=== PATIENT | male | born 1975 | race Caucasian/White ===

== ENCOUNTER 2023-05-30 20:34 | Emergency (ER) | payer SELFPAY ==
[2023-05-30 20:34] VITALS: BMI 21.0
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
[2023-05-30 20:48] VITALS: BP 122/73
[2023-05-31 00:55] LABS: Amphetamines Negative (Negative); Barbiturates Negative (Negative); Benzodiazepines Negative (Negative); Buprenorphine Negative (Negative); Cocaine Negative (Negative); Marijuana Positive (Negative); Methadone Negative (Negative); Methamphetamines Negative (Negative); Opiates Negative (Negative); Phencyclidine Negative (Negative); Tricyclic Antidepressants Negative (Negative)
--- NOTE | 2023-05-31 06:57 | EDRN ---
the pt is refusing to allow staff to obtain blood work from him, the pt is stating, 'I cannot get blood drawn i am a Jehovas witness it is against my holiness beliefs', provider made aware
--- NOTE | 2023-05-31 09:00 | EDRN ---
material worker states pt is to see Dr. Hernandez, psychiatrist today and if not released is scheduled for 303 hearing tomorrow.
--- NOTE | 2023-05-31 09:54 | W.PN.UPDATE ---
Update Note
Progress Note Update
Psychiatric Evaluation dictated.
Patient is denying the events reported in the 302 petition. He however is still paranoid, feels he is being poisoned and his father's property is being withheld from him by a law firm.
Toxicology is positive for marijuana.
Tried to get further information but unable to do so at this time.
Will uphold petition and initiate 303 for acute psychosis.
[2023-05-31 10:02] VITALS: BP 117/72
--- NOTE | 2023-05-31 14:45 | EDRN ---
Diet tray ordered at this time.
--- NOTE | 2023-05-31 15:40 | EDRN ---
Pt eating ordered diet tray at this time.
--- NOTE | 2023-05-31 18:15 | EDRN ---
Pt did order supper
[2023-06-01 05:27] VITALS: BP 105/69
--- NOTE | 2023-06-01 09:23 | ED.CRISIS ---
ED Crisis Note
ED Crisis Note
Subjective:
302
Assessment/Plan:
Patient expresses a flight of ideas and is telling me he needs to hire a team leader/research psychologist. He keeps discussing money and going to the bank. He is pacing around but consolable. Patient awaiting 303 hearing at 10 AM this morning.
--- NOTE | 2023-06-01 11:13 | W.PN.UPDATE ---
Update Note
Progress Note Update
Patient did have the 303 hearing, he completely denied as to what was alleged in the 302 petition. He claimed the bankteller refused to honor the check and he claims he just told the [place] he will roddy. I was/am concerned that the patient is not
telling the truth particularly since he has delusions. Court however did let him go.
== END 2023-06-01 11:13 ==
LOC: EMR 20:34
PROVIDERS: EMERGENCY PHYSICIAN Emergency Medicine; OTHER PHYSICIAN Psychiatry & Neurology Psychiatry
DX: F29 Unspecified psychosis not due to a substance or known physiological condition (principal); F12.10 Cannabis abuse, uncomplicated
CPT/HCPCS: 99285; 80306

== ENCOUNTER 2024-04-17 12:08 | Emergency (ER) | payer SELFPAY ==
[2024-04-17 12:10] VITALS: BP 139/84
[2024-04-17 12:15] VITALS: BMI 20.3
--- NOTE | 2024-04-17 12:38 | ED.GENMED ---
History of Present Illness
<Jacqui Madison PA-C - Last Filed: 04/17/24 16:40>
General
Chief Complaint: Crisis Evaluation
Source: patient and police (reviewed 302 written by police)
Exam Limitations: other (Psychosis)
Time Seen by Provider: 04/17/24 12:24
Nursing documentation reviewed up to this point in time: agreed with
History of Present Illness
History of Present Illness:
Patient is a 48-year-old male presenting to the emergency department via police under 302. Patient states that he was walking along the road from [place] to his house when the police picked him up. When asked�patient is unsure why police picked him
up. Although he does state that 'police picked me up so that I will be unable to attend the court hearing on Sunday. They are trying to stop me from taking over my dad's will and preventing me from keeping his money and home '. Patient repeatedly
mumbling incoherently language to himself.
Patient denies any history of psychiatric conditions, suicidal ideations, or homicidal ideations. Patient denies hearing any voices. Patient denies any alcohol or drug abuse.
302 was petitioned by police. Per the 302�please had numerous interactions with patient over the past year. Today he was seen walking in traffic and attempting to run in front of cars. He was screaming at cars. Patient has not been taking his
medications.
Past History
<Jacqui Madison PA-C - Last Filed: 04/17/24 16:40>
Past History
ED Past Medical History: None
ED Past Surgical History: None
Social History
Tobacco: Non-smoker
Alcohol: Occasional
Personal:
Living: with family
Employment: Employed
Family History
Family History: Negative Diabetes
Review of Systems
<Jacqui Madison PA-C - Last Filed: 04/17/24 16:40>
Review of Systems
Allergies reviewed?: Yes
All Other Systems: ROS reviewed and negative except as documented in HPI and ROS
Phy Exam
<Jacqui Madison PA-C - Last Filed: 04/17/24 16:40>
Physical Exam
Physical Exam:
Vitals: Patient's vital signs are stable
General: Patient is sitting in bed comfortably.
Skin: Warm and dry, no rashes or lesions
Head: Normocephalic, atraumatic
Eyes: Sclera nonicteric.
Throat: Protecting airway
Neck: Normal ROM,
Cardiac: Regular rate and rhythm, no murmurs.
Pulm: Normal respiratory effort, no wheezes, rales, rhonchi heard on exam.
Abdomen: No abdominal tenderness.
Extremities: No evidence of cyanosis or edema
Neuro: AAOx3. Grossly intact. Moves
Psychiatric: Appears delusional. Disorganized thinking.
Course
<Jacqui Madison PA-C - Last Filed: 04/17/24 16:40>
Orders/Labs/Results
Orders:
Orders
04/17/24 12:36
Crisis Consult Urgent
Reason for Consult: 302, psychosis
Alcohol Urgent
Complete Blood Count/With Diff Urgent
Comprehensive Metabolic Panel Urgent
Urine Drug Abuse Screen Urgent
04/17/24 13:42
Lorazepam [Ativan] 1 mg PO Q4HPRN PRN
04/17/24 13:51
Haloperidol Lactate [Haldol] 2 mg IM [id number] PRN
Vital Signs
Initial and Last Documented VS:
Initial Vital Signs
Temp Pulse Resp BP Pulse Ox
98.5 F 80 18 139/84 98
04/17/24 12:10 04/17/24 12:10 04/17/24 12:10 04/17/24 12:10 04/17/24 12:10
Last Documented Vital Signs
Temp Pulse Resp BP Pulse Ox
98.5 F 80 18 139/84 98
04/17/24 12:10 04/17/24 12:10 04/17/24 12:10 04/17/24 12:10 04/17/24 12:10
<Hosea Smith DO - Last Filed: 04/17/24 13:32>
Orders/Labs/Results
Orders:
Orders
04/17/24 12:36
Crisis Consult Urgent
Reason for Consult: 302, psychosis
Alcohol Urgent
Complete Blood Count/With Diff Urgent
Comprehensive Metabolic Panel Urgent
Urine Drug Abuse Screen Urgent
04/17/24 13:42
Lorazepam [Ativan] 1 mg PO Q4HPRN PRN
04/17/24 13:51
Haloperidol Lactate [Haldol] 2 mg IM [id number] PRN
Vital Signs
Initial and Last Documented VS:
Initial Vital Signs
Temp Pulse Resp BP Pulse Ox
98.5 F 80 18 139/84 98
04/17/24 12:10 04/17/24 12:10 04/17/24 12:10 04/17/24 12:10 04/17/24 12:10
Last Documented Vital Signs
Temp Pulse Resp BP Pulse Ox
98.5 F 80 18 139/84 98
04/17/24 12:10 04/17/24 12:10 04/17/24 12:10 04/17/24 12:10 04/17/24 12:10
<Jacqui Madison PA-C - Last Filed: 04/17/24 16:40>
MDM/Problems Addressed
Differential Diagnosis Includes:
Not limited to: acute psychosis, drug intoxication, alcohol intoxication
MDM/Problems Addressed:
48-year-old male presents under 302 petition by police. Patient denies any psychiatric history. Patient feels lighting fixture installer brought him here as they are ' sabotaging me from attending the court hearing on Sunday so that I will have access to my fathers
will and money '. Patient denies any SI/HI. No visual/auditory hallucinations. Patient aware he will have to speak to psychiatry as part of medical screening exam. Patient adamant that we cannot draw his blood as he will not allow us to
'puncture his skin as it is his legal right to refuse '. Vitals stable. On exam�patient is delusional and mumbling incoherent language to himself. He is not aggressive at this time. He does not appear to be in any distress. Will attempt to
obtain lab work, alcohol level, and urine drug screen. Will await psychiatry input.
Update: 302 upheld by psychiatry, Dr. Palmer. Crisis working on bed placement. Patient continues to refuse blood draw.
Chronic conditions affecting care:
N/A
Acute Exacerbation and/or Progression of Chronic Illness:
N/A
<Jacqui Madison PA-C - Last Filed: 04/17/24 16:40>
*Pulse Oximetry
Patient hypoxic: no
*EKG
Interpreted by ED Provider?: NA
*Inside Sales Coordinator Interpretation
Rate: Inside Sales Coordinator- N/A
*Critical Care Note
Total Time (30-74mins, 75-104mins- exclusive of procedures): Not Applicable
Data Reviewed
Source: police (302 report)
ED Attending Note
<Jacqui Madison PA-C - Last Filed: 04/17/24 16:40>
-
Portions of this chart may have been created with voice recognition software.� Occasional wrong word or��sound alike� substitutions may have occurred due to the inherent limitations of voice recognition software.
<Hosea Smith DO - Last Filed: 04/17/24 13:32>
ED Attending Note
Patient seen and examined by attending physician: Yes
I performed the substantive portion of visit, reviewed & personally made and approve the management plan that is documented in note by myself or JANETH.: Yes
ED Attending Note:
I have seen and evaluated the patient with a [id number] encounter. I have spoken to the advance practicer provider and involved in the medical history, the physical exam, medical decision making.
Evaluation and management service: agree unless noted differently below.
Results interpretation: agree unless noted differently below.
Focused HPI: 48-year-old male presents on a 302 petitioned by police. Per the petition, the police know him very well. He apparently is not taking his meds and was standing in the middle of the road yelling at cars.
Physical exam: Sitting in bed comfortably. Appears delusional
Medical Decision Making: Psychiatry did evaluate and upheld the 302. Crisis working on bed search
Discharge Plan
Departure
Patient Disposition: Psych Facility
Date of Disposition: 04/17/24
Time of Disposition: 14:48
Patient Status:: 302
Discharge Problem:
Psychosis
Prescriptions:
No Action
silver sulfadiazine [SSD] 50 GRAM cream
50 g topical DAILY Qty: 1 0RF
ibuprofen 800 MG tablet
800 mg PO Q6HPRN PRN (Reason: pain with food) Qty: 30 0RF
oxycodone-acetaminophen 5 MG/325 MG tablet
1 tab PO Q6HPRN PRN (Reason: pain) Qty: 20 0RF
Interventions
Interventions:
*Risk Screen - Suicide Last Done: 04/17/24 12:10
*General Assessment Last Done: 04/17/24 12:10
*Neglect/Abuse Screening Last Done: 04/17/24 12:10
ED- Fall Risk Assessment Last Done: 04/17/24 12:15
*ED COVID-19 Vaccine History Last Done: 04/17/24 12:10
ED-Psychological Assessment Last Done: 04/17/24 12:15
Discharge Date and Time
Print Language: ALBANIAN
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
== END 2024-04-17 22:30 ==
LOC: EMR 12:08
PROVIDERS: EMERGENCY PHYSICIAN Student in an Organized Health Care Education/Training Program
DX: F29 Unspecified psychosis not due to a substance or known physiological condition (principal)
CPT/HCPCS: 99285

== ENCOUNTER 2024-04-17 23:55 | Emergency (ER) | payer MEDICAID, SELFPAY ==
[2024-04-18 00:05] VITALS: BP 122/80
--- NOTE | 2024-04-18 00:18 | EDRN ---
Pt talking to self. Pt clear at times and then goes off in a tangent. Pt states that his neighbors are trying to hurt him. Pt states they took the locks off and but something in the air and he got sick. Pt refuses to have labs drawn or anything
stuck in him. Pt wants crackers and water and maybe he will give a urine sample.
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
[2024-04-18] MEDS: ATIVAN 2 MG PO (06:05)
== END 2024-04-18 06:20 ==
LOC: EMR 23:55
PROVIDERS: EMERGENCY PHYSICIAN Student in an Organized Health Care Education/Training Program
DX: F23 Brief psychotic disorder (principal); F22 Delusional disorders
CPT/HCPCS: 99285